=== PATIENT | male | born 1975 | race Caucasian/White ===

== ENCOUNTER → 2016-05-17 | Day surgery (SDC) | payer OTHER ==
[2016-05-17] VITALS (14 sets, daily range): BP systolic 104–132; BP diastolic 61–86
[~2016-05-17] VITALS: Ht 172.7 cm; Wt 70.3 kg
[~2016-05-17] MED LIST: Bupivacaine 0.25% Inj 30ml INJ ONE; Bupivacaine w/Epi 0.25% 30ml Vial INJ ONE; DiphenhydrAMINE 50mg/ml Inj IVP PRN; Duramorph PF 10mg/10ml amp IV ONE; EPINEPHrine 1mg/1ml Amp ONE; Hydromorphone 0.5mg/0.5ml inj IVP PRN; Kenalog-40 1ml Vial ONE; Ketorolac 30mg Inj IV PRN; Ketorolac 30mg Inj ONE; LR 1000ml 1,000 ML IVLG SCH; LR 1000ml ONE; Meperidine 25mg/ml Inj IV PRN; Metoclopramide 10mg/2ml Inj IVP PRN; Midazolam 2mg/2ml Inj ONE; Morphine Sulfate 10mg/ml Inj ONE; Morphine Sulfate 2mg/ml Inj IVP PRN; Morphine Sulfate PF 10 ML ONE; NKM; NS Irrig 4000ml IRRIG ONE; Norco 5mg/325mg tab ORAL PRN; Propofol 10mg/ml 20ml IV ONE; ceFAZolin 1gm/50ml Premix 50 ML IV ONE; celeBREX 200mg Cap **SURGERY PATIENTS ONLY ORAL ONE; fentaNYL 100 mcg/2 mL IV ONE; oxyCONTIN 20mg tab ORAL ONE
--- NOTE | 2016-05-17 12:37 | Pre-Procedure Note/Attestation ---
Pre-Procedure Note/Attestation Complete Prior to Procedure Planned Procedure: left Procedure Narrative: hip labral stabilzation Indications for Procedure Pre-Operative Diagnosis: left hip labral tear Attestation I attest that I discussed the nature of the procedure; its benefits; risks and complications; and alternatives (and the risks and benefits of such alternatives ), prior to the procedure, with the patient (or the patient's legal b2b outside sales representative). I attest that, if there was a reasonable possibility of needing a blood transfusion, the patient (or the patient's legal b2b outside sales representative) was given the [facility] standardized written summary, pursuant to the [place] Blood Safety Act ([place] Health and Safety Code # 1645, as amended). I attest that I re-evaluated the patient just prior to the surgery and that there has been no change in the patient's H&P, except as documented below: SWETA MAK May 17, 2016 12:37
--- NOTE | 2016-05-17 12:38 | Operative Note - PDOC ---
Operative Note Operative Note Pre-op Diagnosis: left hip labral tear Procedure: left hip arthroscopy Post-op Diagnosis: same as pre-op Operative Findings: consistent w/pre-op dx studies Anesthesia: general Specimen: none Complications: none Condition: stable Estimated Blood Loss: none Implant(s) used?: Yes SWETA MAK May 17, 2016 12:38
--- NOTE | 2016-05-17 13:35 | Anethesia Preoperative Eval ---
Anesthesia Pre-op PMH/ROS General Date of Evaluation: May 17, 2016 Time of Evaluation: 12:10 Anesthesiologist: Marguerite ASA Score: ASA 2 Mallampati Score Class I : Soft palate, uvula, fauces, pillars visible Class II: Soft palate, uvula, fauces visible Class III: Soft palate, base of uvula visible Class IV: Only hard plate visible Mallampati Classification: Class II Surgeon: Alden Diagnosis: L hip pain Surgical Procedure: L hip arthroscopy Anesthesia History: none Family History: no anesthesia problems Allergies: Coded Allergies: No Known Allergies (Unverified , 05/16/16) Medications: see eMAR Past Medical History Cardiovascular: Denies: CAD, HTN, MT, arrhythmia, other, valve dz Pulmonary: Denies: COPD, CHERRIE, asthma, other Gastrointestinal/Genitourinary: Denies: CRI, ESRD, GERD, other Neurologic/Psychiatric: Denies: CVA, TIA, dementia, depression/anxiety, other Endocrine: Denies: DM, hypothyroidism, other, steroids HEENT: Denies: RAMONA (L), RAMONA (R), cataract (L), cataract (R), glaucoma, other Hematology/Immune: Denies: DVT, anemia, bleeding disorder, other Musculoskeletal/Integumentary: Denies: DDD, DJD, OA, RA, edema, other PMH Narrative: as above PSxH Narrative: none Anesthesia Pre-op Phys. Exam Physician Exam Last Vital Signs Date Time Temp Pulse Resp B/P Pulse Ox O2 Delivery O2 Flow Rate FiO2 05/17/16 07:41 99.0 57 18 124/86 100 Room Air Constitutional: NAD Neurologic: CN 2-12 intact Cardiovascular: RRR, no M/R/G Respiratory: CTA Gastrointestinal: S/NT/ND Airway Exam Mallampati Score: Class II MO: full Neck: flexible ROM: full Teeth: intact Dentures: no lower, no upper Anesthesia Pre-op A/P Labs see chart Studies Pre-op Studies: EKG - NSR Risk Assessment & Plan Assessment: ASA 2 Plan: GA with LMA Status Change Before Surgery: No Pre-Antibiotics Drug: Ancef 2gr. Given Within 1 Hr of Incision: Yes Time Given: 13:06 MUNIRA MORRISON M.D. May 17, 2016 13:35
--- NOTE | 2016-05-17 14:59 | Immediate Post-Op Evaluation ---
Immediate Post-Op Evalulation Immediate Post-Op Evalulation Procedure: L Hip Arthroscopy Debridement and labrum repair Date of Evaluation: May 17, 2016 Time of Evaluation: 14:57 IV Fluids: 1200 Blood Products: none Estimated Blood Loss: min Urinary Output: none Blood Pressure Systolic: 116 Blood Pressure Diastolic: 70 Pulse Rate: 76 Respiratory Rate: 20 O2 Sat by Pulse Oximetry: 99 Temperature (Fahrenheit): 97.4 Pain Score (1-10): 1 Nausea: No Vomiting: No Complications none Patient Status: reacts, patent, none Hydration Status: adequate MUNIRA MORRISON M.D. May 17, 2016 14:59
--- NOTE | 2016-05-17 18:03 | 48 Hour Post Anesthesia Eval ---
Post Anesthesia Evaluation Procedure: L Hip Arthroscopy Debridement and labrum repair Date of Evaluation: May 17, 2016 Time of Evaluation: 18:02 Blood Pressure Systolic: 132 0: 74 Pulse Rate: 68 Respiratory Rate: 20 Temperature (Fahrenheit): 97.6 O2 Sat by Pulse Oximetry: 98 Airway: patent Nausea: No Vomiting: No Pain Intensity: 3 Hydration Status: adequate Cardiopulmonary Status: stable Follow-up Care/Observations: n/a Post-Anesthesia Complications: none Follow-up care needed: ready to discharge MUNIRA MORRISON M.D. May 17, 2016 18:03
--- NOTE | 2016-05-17 21:48 | Operative Note - Dictated ---
DATE OF OPERATION: 05/17/2016 PREOPERATIVE DIAGNOSIS: Left hip traumatic labral tear. POSTOPERATIVE DIAGNOSIS: Left hip traumatic labral tear. PROCEDURES: 1. Left hip diagnostic arthroscopy, synovectomy, and capsulectomy. 2. Left hip arthroscopic labral stabilization procedure. SURGEON: Gregorio Ruano M.D. ANESTHESIA: General. INDICATION FOR PROCEDURE: The patient is a pleasant gentleman, who has had a traumatic left hip labral tear. He had continued pain, failed conservative treatment, therefore, elected to undergo left hip arthroscopic labral stabilization procedure. Risks, limitations, expectations and complications related to the procedure were discussed in detail. All questions were addressed. DESCRIPTION OF PROCEDURE: An informed consent was obtained, the patient was taken to the operative room and placed under general anesthesia. The patient was then carefully placed in the fracture table with pad all the extremities. At this point, the left hip was slightly flexed and the right hip was abducted. The left hip was placed under traction. Spinal was then placed into the hip joint. At this point attention was paid to the time and the traction was then placed. The left leg was prepped and draped in sterile manner. Time-out was performed. Ancef was administered. Spinal was then placed through the lateral portal. Once the guidewire was then placed in the hip join, it was dilated to accommodate the cannula. Once that was done, using good position spinal was then placed in the anterior lateral portal. A guidewire was then placed in the dilator and trocar was then placed. At this point, the capsulotomy was performed to allow better movement of the trocars from the hip joint. Once that was done, using combination of both the scalpel as well as the ArthroCare, the capsule was released to rule out distention of the hip joint and better visualization of the peripheral compartment of the hip. Once adequate visualization was obtained. Then attention was turned to the labrum. There is a 1 x 3 mm area of chondral damage of the femoral head. There was a tear of the capsule labral junction, which measured approximately 1.5 cm. There is erythema along the anterior labrum consistent with trauma. At this point, the capsule labral tissue was debrided. Once that was done, two arthroscopic anchor was then placed to inverted mattress sutures to recreate the footprint of the labrum where majority of the tear was. Gentle chondroplasty of the inferior chondral damage along the femoral head was performed. Once that was completed, the instruments were removed. Portal sites were closed with 3-0 Monocryl suture. Steri-Strips and a sterile dressing were applied. The patient was awoken and taken to the recovery room with stable vital signs. ESTIMATED BLOOD LOSS: None. COMPLICATIONS: None. SPECIMENS: None. IMPLANTS: Continue Arthrex push lock anchors. Gregorio Ruano M.D. DR: ESDRAS JOB#: [id number] CC: RAVI
--- NOTE | 2016-05-18 08:29 | Diagnostic Imaging Report ---
Indications: hip pain Findings: Intraoperative views of the left hip were obtained. Intraoperative, fluoroscopic imaging showing a needle projected over the left hip joint. Impression: Intraoperative imaging
== END | disposition home or self-care (01) ==
LOC: SUR 05:51
DX: S73.192A Other sprain of left hip, initial encounter (principal); X58.XXXA Exposure to other specified factors, initial encounter; Y92.89 Other specified places as the place of occurrence of the external cause; Y99.9 Unspecified external cause status
CPT/HCPCS: 29916; 73502; 76001; 97161; C1713; J0171; J0690; J1170; J1885; J2250; J2270; J2274; J2405; J2704; J2765; J3010; J3301; J3490; J7120; 94003; 94150; J2180